=== PATIENT | female | born 1940 | race Caucasian/White ===

== ENCOUNTER 2018-06-01 10:25 | Inpatient (IN) | payer MEDICARE, BC ==
[2018-06-01] MEDS ORDERED: SODIUM CHLORIDE 0.9% 250 ML 250 ML IV ONE (11:42)
[2018-06-01] MEDS ORDERED: HALOPERIDOL LACTATE 5 MG/ML SOL IV ONE (11:43)
[2018-06-01 12:03] LABS: BASOPHILS % (AUTO) 1 % (0-3); EOSINOPHILS % (AUTO) 1 % (0-9); HEMATOCRIT 54 % (35-47); HEMOGLOBIN 16.7 gm/dl (12.0-15.5); LYMPHOCYTES % (AUTO) 15.6 % (10-50); MEAN CORPUSCULAR HEMOGLOBIN 30.1 pg (27.0-32.0); MEAN CORPUSCULAR HGB CONC 31.2 gm/dl (32.0-36.0); MEAN CORPUSCULAR VOLUME 96 fL (81-99); NEUTROPHILS % (AUTO) 72.4 % (37-80)
[2018-06-01 12:09] LABS: LACTIC ACID 2.3 mMol/L (0.0-2.0)
[2018-06-01 12:09] LABS: APPEARANCE,URINE Slightly Cloudy; BILIRUBIN,URINE NEGATIVE (NEGATIVE); COLOR,URINE Yellow; GLUCOSE, URINE (UA) NEGATIVE (NEGATIVE); KETONES,URINE TRACE (NEGATIVE); LEUKOCYTE ESTERASE ,URINE 1+ (NEGATIVE); NITRATE,URINE POSITIVE (NEGATIVE); OCCULT BLOOD,URINE NEGATIVE (NEG-TRACE); PH,URINE 5.5; UROBILINOGEN,URINE 0.2 (0.2-1.0 EU)
[2018-06-01 12:22] LABS: ALBUMIN 3.2 gm/dl (3.4-5.0); BILIRUBIN,TOTAL 0.4 mg/dl (0.2-1.0); CALCIUM 9.6 mg/dl (8.5-10.1); CARBON DIOXIDE 32.7 mEq/L (21-32); CREATININE 1.06 mg/dl (0.60-1.00); CRP INFLAMMATORY 0.77 mg/dl (0.00-0.33); MAGNESIUM 1.6 mg/dl (1.8-2.4); POTASSIUM 4.3 mMol/L (3.5-5.1); THYROID STIMULATING HORMONE 6.554 uIU/ml (0.358-3.740); TOTAL PROTEIN 7.3 gm/dl (6.4-8.2)
[2018-06-01 12:35] LABS: BACTERIA 3+ (< 1+); CRYSTALS NEGATIVE (0-3 AVE/HPF); EPITHELIAL CELLS 0-2 (SQUAMOUS); RBC,URINE 0-1 (0-3AV/HPF)
[2018-06-01] MEDS ORDERED: LEVOFLOXACIN 25 MG/ML 500 MG in SODIUM CHLORIDE 0.9% 100 ML 100 ML IV ONE (12:58)
[2018-06-01] MEDS ORDERED: LEVOFLOXACIN 25 MG/ML SOL IV ONE (13:32)
[2018-06-01] MEDS ORDERED: SODIUM CHLORIDE 0.9% 50 ML 25 ML IV PRN (13:49)
[2018-06-01] MEDS: METFORMIN HYDROCHLORIDE 500 MG TAB PO SCH ×2 (14:54→20:53)
[2018-06-01] MEDS ORDERED: ALBUTEROL NEB SOL 2.5MG/3ML 1 VIAL SOL NEB PRN (15:26)
[2018-06-01] MEDS: SULFAMETHOXAZOLE/TRIMETHOPRI 800/160 MG PO SCH ×2 (16:07→20:53)
[2018-06-01] MEDS: ALBUTEROL/IPRATROPIUM 1 VIAL SOL INH SCH ×2 (16:39→20:51)
[2018-06-01] MEDS ORDERED: SODIUM CHLORIDE 0.9% 1000ML 1,000 ML IV ONE (18:15)
[2018-06-01] MEDS: CLOTRIMAZOLE 1% CREAM TOP SCH (20:52)
[2018-06-01] MEDS: TRAMADOL HYDROCHLORIDE 50 MG TAB PO PRN (20:53)
[2018-06-01] MEDS ORDERED: NYSTATIN TOP SCH (21:00)
[2018-06-01] MEDS ORDERED: TRIAMCINOLONE ACETO TOP SCH (21:00)
[2018-06-02] MEDS: LEVOTHYROXINE SODIUM 50 MCG TAB PO SCH (06:10)
[2018-06-02 07:32] LABS: BASOPHILS % (AUTO) 1 % (0-3); EOSINOPHILS % (AUTO) 1 % (0-9); HEMATOCRIT 45 % (35-47); HEMOGLOBIN 14.4 gm/dl (12.0-15.5); LYMPHOCYTES % (AUTO) 14.2 % (10-50); MEAN CORPUSCULAR HGB CONC 32.1 gm/dl (32.0-36.0); MEAN CORPUSCULAR VOLUME 97 fL (81-99); MONOCYTES % (AUTO) 11.8 % (0-12); NEUTROPHILS % (AUTO) 72.5 % (37-80)
[2018-06-02 07:39] LABS: CALCIUM 8.8 mg/dl (8.5-10.1); CARBON DIOXIDE 29.2 mEq/L (21-32); CREATININE 1.19 mg/dl (0.60-1.00); POTASSIUM 4.3 mMol/L (3.5-5.1)
[2018-06-02] MEDS: CLOTRIMAZOLE 1% CREAM TOP SCH ×2 (08:46→20:17)
[2018-06-02] MEDS: SULFAMETHOXAZOLE/TRIMETHOPRI 800/160 MG PO SCH ×2 (08:51→20:17)
[2018-06-02] MEDS: SODIUM CHLORIDE 0.9% FLUSH 10 ML SOL IV SCH ×2 (08:52→17:38)
[2018-06-02] MEDS: METFORMIN HYDROCHLORIDE 500 MG TAB PO SCH (08:52)
[2018-06-02] MEDS: ALBUTEROL/IPRATROPIUM 1 VIAL SOL INH SCH ×4 (09:39→20:20)
[2018-06-02] MEDS: OXYCODONE HYDROCHLORIDE 5 MG TAB PO PRN ×2 (11:02→12:33)
[2018-06-02] MEDS ORDERED: LORAZEPAM 0.5 MG TAB PO ONE (11:39)
[2018-06-02] MEDS: TRAMADOL HYDROCHLORIDE 50 MG TAB PO PRN (20:17)
[2018-06-03] MEDS: SODIUM CHLORIDE 0.9% FLUSH 10 ML SOL IV SCH ×4 (02:06→16:30)
[2018-06-03] MEDS: LEVOTHYROXINE SODIUM 50 MCG TAB PO SCH (06:18)
[2018-06-03] MEDS: TRAMADOL HYDROCHLORIDE 50 MG TAB PO PRN ×2 (06:18→13:52)
[2018-06-03 07:26] LABS: CALCIUM 9.1 mg/dl (8.5-10.1); CARBON DIOXIDE 29.8 mEq/L (21-32); CREATININE 1.2 mg/dl (0.60-1.00); POTASSIUM 4.1 mMol/L (3.5-5.1)
[2018-06-03] MEDS: CLOTRIMAZOLE 1% CREAM TOP SCH ×2 (08:15→20:41)
[2018-06-03] MEDS: SULFAMETHOXAZOLE/TRIMETHOPRI 800/160 MG PO SCH ×2 (08:15→20:38)
[2018-06-03] MEDS: ALBUTEROL/IPRATROPIUM 1 VIAL SOL INH SCH ×4 (08:51→20:38)
[2018-06-03] MEDS: LEVETIRACETAM 250 MG TAB PO SCH (20:37)
[2018-06-04] MEDS: SODIUM CHLORIDE 0.9% FLUSH 10 ML SOL IV SCH ×2 (02:28→09:07)
[2018-06-04] MEDS: LEVOTHYROXINE SODIUM 50 MCG TAB PO SCH (06:18)
[2018-06-04] MEDS: LEVETIRACETAM 250 MG TAB PO SCH (08:57)
[2018-06-04] MEDS: CLOTRIMAZOLE 1% CREAM TOP SCH (08:58)
[2018-06-04] MEDS: ALBUTEROL/IPRATROPIUM 1 VIAL SOL INH SCH ×2 (08:58→13:25)
[2018-06-04] MEDS: SULFAMETHOXAZOLE/TRIMETHOPRI 800/160 MG PO SCH (08:58)
[2018-06-04 09:07] VITALS: BP 163/81; TEMP 98.1
[2018-06-04 13:39] VITALS: PULSE 89; RESP 18; O2SAT 91
== END 2018-06-04 13:30 | DRG 52 ==
LOC: ED 10:25 → UNDOADMIN 13:14 → ACUTE CARE 13:14
PROVIDERS: ADMIT Family Medicine; ATTEND Family Medicine
PROC: F01L5ZZ Range of Motion and Joint Integrity Assessment of Musculoskeletal System - Lower Back / Lower Extremity (ICD-10-PCS; principal; 2018-06-01)
PROC: F01L0ZZ Muscle Performance Assessment of Musculoskeletal System - Lower Back / Lower Extremity (ICD-10-PCS; 2018-06-01)
PROC: F01ZBFZ Bed Mobility Assessment using Assistive, Adaptive, Supportive or Protective Equipment (ICD-10-PCS; 2018-06-01)
PROC: F02Z3ZZ Grooming/Personal Hygiene Assessment (ICD-10-PCS; 2018-06-02)
PROC: F02Z2ZZ Feeding/Eating Assessment (ICD-10-PCS; 2018-06-02)
DX: A41.9 Sepsis, unspecified organism (principal); G82.20 Paraplegia, unspecified; N30.00 Acute cystitis without hematuria; E11.22 Type 2 diabetes mellitus with diabetic chronic kidney disease; R41.0 Disorientation, unspecified; R53.1 Weakness; R06.02 Shortness of breath; R06.2 Wheezing; R06.00 Dyspnea, unspecified; R09.3 Abnormal sputum; R60.9 Edema, unspecified; R33.9 Retention of urine, unspecified; J43.1 Panlobular emphysema; E08.22 Diabetes mellitus due to underlying condition with diabetic chronic kidney disease; N18.3 Chronic kidney disease, stage 3 (moderate); E03.9 Hypothyroidism, unspecified; R41.82 Altered mental status, unspecified
CPT/HCPCS: 36415; 70450; 71045; 80048; 80053; 81001; 82962; 83735; 84443; 85025; 87040; 87077; 87088; 87186; 94150; 94640; 94760; 96365; 96366; 99285; J1956; A9270-GY

== ENCOUNTER 2018-06-19 19:18 | Emergency (ER) | payer MEDICARE, BC ==
[2018-06-19] MEDS ORDERED: ACETAMINOPHEN 325 MG PO ONE (20:23)
[2018-06-19 20:28] VITALS: TEMP 96.8
[2018-06-19] MEDS ORDERED: ACETAMINOPHEN 325 MG ONE (20:29)
[2018-06-19 21:24] VITALS: BP 140/92; PULSE 70; RESP 18; O2SAT 96
[2018-06-19] MEDS ORDERED: TRAMADOL HYDROCHLORIDE 50 MG TAB PO ONE (23:02)
[2018-06-19] MEDS ORDERED: TRAMADOL HYDROCHLORIDE 50 MG TAB ONE (23:19)
[2018-06-19] MEDS ORDERED: BACITRACIN 500 U/GM OIN TOP ONE ×2 (23:23→23:25)
== END 2018-06-19 23:35 | DRG 914 ==
LOC: ED 19:18
DX: S09.8XXA Other specified injuries of head, initial encounter (principal); W05.0XXA Fall from non-moving wheelchair, initial encounter; E11.9 Type 2 diabetes mellitus without complications; M25.552 Pain in left hip; M25.562 Pain in left knee; M25.561 Pain in right knee; R40.2362 Coma scale, best motor response, obeys commands, at arrival to emergency department; R40.2142 Coma scale, eyes open, spontaneous, at arrival to emergency department; R40.2252 Coma scale, best verbal response, oriented, at arrival to emergency department
CPT/HCPCS: 70450; 72192; 73502; 73560; 99284; 99285; G0390; A9270-GY

== ENCOUNTER 2019-02-05 15:19 | Observation (INO) | payer BC, MEDICARE ==
[2019-02-05 16:40] LABS: BASOPHILS % (AUTO) 1 % (0-3); EOSINOPHILS % (AUTO) 5 % (0-9); HEMATOCRIT 41 % (35-47); HEMOGLOBIN 13.3 gm/dl (12.0-15.5); LYMPHOCYTES % (AUTO) 15.6 % (10-50); MEAN CORPUSCULAR HEMOGLOBIN 30.8 pg (27.0-32.0); MEAN CORPUSCULAR HGB CONC 32.2 gm/dl (32.0-36.0); MEAN CORPUSCULAR VOLUME 96 fL (81-99); NEUTROPHILS % (AUTO) 66.1 % (37-80)
[2019-02-05 16:52] LABS: ALBUMIN 3.9 gm/dl (3.4-5.0); BILIRUBIN,TOTAL 0.4 mg/dl (0.2-1.0); CALCIUM 9.8 mg/dl (8.5-10.1); CARBON DIOXIDE 26.4 mEq/L (21-32); CREATININE 1.33 mg/dl (0.60-1.00); TOTAL PROTEIN 7.7 gm/dl (6.4-8.2)
[2019-02-05] MEDS ORDERED: LORAZEPAM 0.5 MG TAB PO ONE (17:30)
[2019-02-05] MEDS: SODIUM CHLORIDE 0.9% 1000ML 1,000 ML IV SCH ×4 (17:45→22:58)
[2019-02-05] MEDS ORDERED: LORAZEPAM 0.5 MG TAB ONE (17:54)
[2019-02-05] MEDS ORDERED: BISACODYL 10 MG SUP PR PRN (18:23)
[2019-02-05] MEDS ORDERED: TRAMADOL HYDROCHLORIDE 50 MG TAB PO PRN (18:23)
[2019-02-05] MEDS ORDERED: ACETAMINOPHEN 500 MG 500 MG TAB PO PRN (18:23)
[2019-02-05] MEDS ORDERED: ALUMINUM/MAGNESIUM 30 ML SUS PO PRN (18:23)
[2019-02-05] MEDS ORDERED: ALBUTEROL NEB SOL 2.5MG/3ML 1 VIAL SOL INH PRN (18:23)
[2019-02-05] MEDS: LORAZEPAM 0.5 MG TAB PO SCH (19:49)
[2019-02-05] MEDS: ALBUTEROL/IPRATROPIUM 1 VIAL SOL INH SCH (19:55)
[2019-02-05] MEDS: LEVETIRACETAM 250 MG TAB PO SCH (20:12)
[2019-02-05] MEDS: SIMVASTATIN 20 MG TAB PO SCH (20:12)
[2019-02-05] MEDS: METFORMIN HYDROCHLORIDE 500 MG TAB PO SCH (20:12)
[2019-02-06] MEDS: MIDODRINE HCL 2.5 MG TAB PO SCH ×3 (01:14→21:48)
[2019-02-06] MEDS: NITROFURANTOIN 100 MG PO SCH ×2 (01:14→20:07)
[2019-02-06] MEDS: SODIUM CHLORIDE 0.9% 1000ML 1,000 ML IV SCH (04:25)
[2019-02-06] MEDS: ACETAMINOPHEN 500 MG 500 MG TAB PO SCH (06:46)
[2019-02-06] MEDS: LEVOTHYROXINE SODIUM 50 MCG TAB PO SCH (06:47)
[2019-02-06 07:29] LABS: BASOPHILS % (AUTO) 1 % (0-3); EOSINOPHILS % (AUTO) 7 % (0-9); HEMATOCRIT 40 % (35-47); LYMPHOCYTES % (AUTO) 11.6 % (10-50); MEAN CORPUSCULAR HEMOGLOBIN 31.2 pg (27.0-32.0); MEAN CORPUSCULAR HGB CONC 32.4 gm/dl (32.0-36.0); MEAN CORPUSCULAR VOLUME 97 fL (81-99); NEUTROPHILS % (AUTO) 70.1 % (37-80)
[2019-02-06 07:34] LABS: CALCIUM 8.7 mg/dl (8.5-10.1); CARBON DIOXIDE 25.3 mEq/L (21-32); CREATININE 1.25 mg/dl (0.60-1.00)
[2019-02-06] MEDS: ALBUTEROL/IPRATROPIUM 1 VIAL SOL INH SCH ×3 (07:43→18:22)
[2019-02-06] MEDS ORDERED: SODIUM CHLORIDE 0.9% 1000ML 1,000 ML IV SCH (08:30)
[2019-02-06] MEDS ORDERED: OMEPRAZOLE 20 MG CAPSULE PO SCH (09:00)
[2019-02-06] MEDS: LEVETIRACETAM 250 MG TAB PO SCH ×2 (09:22→21:48)
[2019-02-06] MEDS: PANTOPRAZOLE SODIUM 40 MG ECT PO SCH (09:22)
[2019-02-06] MEDS: METFORMIN HYDROCHLORIDE 500 MG TAB PO SCH ×2 (09:22→21:47)
[2019-02-06] MEDS: CRANBERRY 500 MG PO SCH (09:48)
[2019-02-06] MEDS: NITROFURANTOIN 100 MG CAP PO SCH ×2 (09:49→21:48)
[2019-02-06] MEDS: LORAZEPAM 0.5 MG TAB PO SCH (17:06)
[2019-02-06] MEDS: SIMVASTATIN 20 MG TAB PO SCH (21:48)
[2019-02-07] MEDS: LEVOTHYROXINE SODIUM 50 MCG TAB PO SCH (06:25)
[2019-02-07] MEDS: ACETAMINOPHEN 500 MG 500 MG TAB PO SCH (06:25)
[2019-02-07 07:55] LABS: CALCIUM 8.6 mg/dl (8.5-10.1); CREATININE 1.09 mg/dl (0.60-1.00)
[2019-02-07 08:04] VITALS: BP 130/84; TEMP 96.9
[2019-02-07] MEDS: NITROFURANTOIN 100 MG CAP PO SCH (09:18)
[2019-02-07] MEDS: LEVETIRACETAM 250 MG TAB PO SCH (09:18)
[2019-02-07] MEDS: MIDODRINE HCL 2.5 MG TAB PO SCH (09:19)
[2019-02-07] MEDS: PANTOPRAZOLE SODIUM 40 MG ECT PO SCH (09:19)
[2019-02-07] MEDS: METFORMIN HYDROCHLORIDE 500 MG TAB PO SCH (09:19)
[2019-02-07] MEDS: ALBUTEROL/IPRATROPIUM 1 VIAL SOL INH SCH (09:20)
[2019-02-07] MEDS: CRANBERRY 500 MG PO SCH (09:20)
[2019-02-07 09:21] VITALS: RESP 18
[2019-02-07 09:50] VITALS: PULSE 79; O2SAT 97
== END 2019-02-07 11:00 | DRG 641 ==
LOC: ED 15:19 → UNDOADMOB 18:04 → ACUTE CARE 18:04
PROVIDERS: ADMIT Emergency Medicine; ATTEND Emergency Medicine
DX: E86.0 Dehydration (principal); R53.1 Weakness; E87.1 Hypo-osmolality and hyponatremia; E87.5 Hyperkalemia; E06.3 Autoimmune thyroiditis; E11.22 Type 2 diabetes mellitus with diabetic chronic kidney disease; N18.3 Chronic kidney disease, stage 3 (moderate)
CPT/HCPCS: 36415; 80048; 80053; 82962; 83605; 85025; 94640; 96365; 99218; 99283; J7613; A9270-GY